=== PATIENT | female | born 1930 | race Caucasian/White ===

== ENCOUNTER → 2017-09-09 | Outpatient (CLI) | payer OTHER ==
[~2017-09-09] VITALS: Ht 165.1 cm; Wt 70.3 kg
[~2017-09-09] MED LIST: ALEVE220 M1 PO; BISACODYL SUPP10 MG RE; CALCIUM 600 +1 EAC1 PO; CLARITIN10 MG PO; COUMADIN 2 MG TA2 M1 PO; COUMADIN 5 MG TA5 M1 PO; ENDUR-ACIN500 MG PO; FELDENE20 MG PO; FIBER0.52 G1 PO; FISH OIL + VIT1 EACH PO; GLUCOSAMINE-CH1 EA33 PO; HYDROCODON-ACE1 EAC7 PO; MAG-AL PLUS SUS30 ML PO; NIACIN 500 MG500 M1 PO; PERCOCET 7.5-31 EACH PO; STOOL SOFTENER100 M1 PO; THERA-M CAPLET1 EACH PO; TYLENOL325 MG PO; VITAMIN C + RO500 MG PO; [UNRECOGNIZED DRUG - OTHER] PO
--- NOTE | ~2017-09-09 | P ---
[facility] [place] [address] PROCEDURE REPORT Name: STEPHONDOUGIE MULLIGAN Room #: REG [facility].#: [id number] Admission: 09/09/17 Attend Phys: Ramiro George Discharge: Date of : 32 Report #: [id number] THIS REPORT FOR: //name// CC: Ramiro Stein MD DATE OF SERVICE: 09/09/2017 PROCEDURE PERFORMED: Colonoscopy with biopsies. HISTORY OF PRESENT ILLNESS: The patient is an 87-year-old female with a history of colon polyps, here for routine followup. She denies any symptoms. No family history of colon cancer. DESCRIPTION OF PROCEDURE: The risks and benefits of the procedure were explained to the patient, those risks including, but not limited to bleeding, perforation, the risk of sedation. She understood these risks and gave informed consent. Sedation was given using propofol per anesthesia. Next, a digital rectal exam was initially performed, which was normal. Next, using a standard Olympus colonoscope, the scope was placed in the patient's anus and advanced under direct vision to the cecum. The overall prep was excellent. The cecum and ileocecal valve were normal in appearance. Ascending, transverse, and descending colon were normal. In the sigmoid colon, a 5 mm sessile polyp was noted. This was removed with cold forceps. Scattered diverticulosis was also noted in the sigmoid colon, no evidence of inflammation. The rectal mucosa was normal. On retroflexion, small nonbleeding internal hemorrhoids were noted. The scope was then withdrawn and the procedure terminated. The patient tolerated the procedure well. IMPRESSION: 1. Small colonic polyp. 2. Sigmoid diverticulosis. 3. Small internal hemorrhoids. 4. Otherwise normal colonoscopy. RECOMMENDATIONS: 1. Await biopsy results. 2. No repeat colonoscopy needed due to the patient's age. Thank you for allowing me to participate in her care. <ELECTRONICALLY SIGNED> By: Ramiro Toledo MD 09/14/17 [id number] Ramiro Toledo MD /nt
== END | disposition home or self-care (01) ==
LOC: GI 08-24 15:21
DX: Z12.11 Encounter for screening for malignant neoplasm of colon (principal); D12.5 Benign neoplasm of sigmoid colon; K57.30 Diverticulosis of large intestine without perforation or abscess without bleeding; K64.8 Other hemorrhoids; Z86.010 Personal history of colon polyps; Z87.891 Personal history of nicotine dependence; Z96.643 Presence of artificial hip joint, bilateral; Z98.49 Cataract extraction status, unspecified eye; Z98.890 Other specified postprocedural states
CPT/HCPCS: 62110; 62900